=== PATIENT | female | born 2000 | race Caucasian/White ===

== ENCOUNTER 2021-01-06 15:40 | Emergency (ER) | payer OTHER, SELFPAY ==
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
[2021-01-06 15:48] VITALS: BP 112/72; PULSE 60; O2SAT 95
[2021-01-06 15:53] VITALS: BP 112/72; PULSE 60; RESP 19; TEMP 36.9; O2SAT 95; BMI 33.7
[2021-01-06] MEDS: Cyclobenzaprine HCl 10 MG TABLET PO (16:39)
[2021-01-06] MEDS: Ibuprofen 800 MG TABLET PO (16:39)
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
== END 2021-01-06 18:30 | disposition home or self-care (01) ==
PROVIDERS: Emergency Provider Emergency Medicine; PCP Pediatrics
DX: S39.012A Strain of muscle, fascia and tendon of lower back, initial encounter (principal); M25.462 Effusion, left knee; M54.6 Pain in thoracic spine; M25.562 Pain in left knee; V43.62XA Car passenger injured in collision with other type car in traffic accident, initial encounter; Y93.9 Activity, unspecified; Y92.410 Unspecified street and highway as the place of occurrence of the external cause; Y99.9 Unspecified external cause status; Z79.899 Other long term (current) drug therapy
CPT/HCPCS: 72072; 72110; 73564; 99283; 99284